=== PATIENT | female | born 1965 | race Caucasian/White ===

== ENCOUNTER → 2018-07-03 | Outpatient (CLI) | payer BC ==
[2018-07-03 12:28] LABS: ADD MAN DIFF? NO
[2018-07-03 12:30] LABS: WHITE BLOOD COUNT 7.5 10^3/ul (4.8-10.8)
[2018-07-03 12:30] LABS: BASOPHILS % 0.4 % (0.0-2.0); EOSINOPHILS % 0.5 % (0.0-7.0); HEMATOCRIT 39.9 % (37.0-47.0); HEMOGLOBIN 13.5 g/dl (12.0-16.0); IMMATURE GRANS #M 0.02 10^3/ul; IMMATURE GRANS % (M) 0.3 %; LYMPHOCYTES # 2.1 10^3/ul (0.8-2.9); LYMPHOCYTES % 28.2 % (15.0-51.0); MEAN CORPUSCULAR HEMOGLOBIN 31.2 pg (29.0-33.0); MEAN CORPUSCULAR HGB CONC 33.8 g/dl (32.0-37.0); MEAN CORPUSCULAR VOLUME 92.1 fl (82.0-101.0); MEAN PLATELET VOLUME 8.7 fl (7.4-10.4); MONOCYTE # 0.6 10^3/ul (0.3-0.9); MONOCYTES % 8.2 % (0.0-11.0); NEUTROPHIL # 4.7 10^3/ul (1.6-7.5); NEUTROPHILS % 62.4 % (39.0-77.0); PLATELET COUNT 250 10^3/UL (140-415); RED BLOOD COUNT 4.33 10^6/ul (4.20-5.40); RED CELL DISTRIBUTION WIDTH 12.4 % (11.5-14.5)
[2018-07-03 12:40] LABS: ADD UMIC YES; UR ASCORBIC ACID 40 mg/dL (NEGATIVE); UR BILIRUBIN (Dip) NEGATIVE (NEGATIVE); UR BLOOD (Dip) NEGATIVE (NEGATIVE); UR CLARITY SLIGHTLY CLOUDY (CLEAR); UR COLOR YELLOW (YELLOW); UR GLUCOSE (Dip) NEGATIVE (NEGATIVE); UR KETONES (Dip) NEGATIVE (NEGATIVE); UR LEUKOCYTE ESTERASE (Dip) TRACE Leu/ul (NEGATIVE); UR MUCUS FEW /HPF (NONE SEEN); UR NITRITE (Dip) NEGATIVE (NEGATIVE); UR RBC 9 /HPF (0-5); UR SPECIFIC GRAVITY (Dip) 1.019 (1.003-1.030); UR SQUAMOUS EPITHELIAL CELL FEW /HPF (FEW); UR TOTAL PROTEIN (Dip) NEGATIVE (NEGATIVE); UR UROBILINOGEN (Dip) NEGATIVE (NEGATIVE); UR WBC 1 /HPF (0-5)
[2018-07-03 12:40] LABS: HEMOGLOBIN A1C 5.8 % (0-5.9)
[2018-07-03 13:09] LABS: ALANINE AMINOTRANSFERASE 40 IU/L (13-69); ALBUMIN 4.1 g/dl (3.3-4.9); ALBUMIN/GLOBULIN RATIO 1.07; ALKALINE PHOSPHATASE 61 IU/L (42-121); ANION GAP 11 (8-16); ASPARTATE AMINO TRANSFERASE 34 IU/L (15-46); BILIRUBIN,INDIRECT 0.8 mg/dl (0-1.1); BILIRUBIN,TOTAL 0.8 mg/dl (0.2-1.3); BLOOD UREA NITROGEN 16 mg/dl (7-20); CALCIUM 9.4 mg/dl (8.4-10.2); CARBON DIOXIDE 31 mmol/L (21-31); CHLORIDE 105 mmol/L (97-110); CHOL/HDL RATIO 3.5 RATIO; CHOLESTEROL 162 mg/dl (100-200); CREATININE 0.68 mg/dl (0.44-1.00); GLUCOSE 93 mg/dl (70-220); HDL CHOLESTEROL 46 mg/dl (37-92); LDL CHOLESTEROL,CALCULATED 93 mg/dl; POTASSIUM 4.8 mmol/L (3.5-5.1); SODIUM 142 mmol/L (135-144); TOTAL PROTEIN 7.9 g/dl (6.1-8.1); TRIGLYCERIDES 113 mg/dl (0-149)
[2018-07-03 13:38] LABS: ERYTHROCYTE SEDIMENTATION RATE 15 mm/Hr (0-30)
[2018-07-03 14:16] LABS: FOLATE > 20.0 ng/ml (2.8-20.0)
== END | disposition home or self-care (01) ==
LOC: LAB 11:59
DX: G62.9 Polyneuropathy, unspecified (principal); R73.03 Prediabetes; E53.8 Deficiency of other specified B group vitamins; E78.5 Hyperlipidemia, unspecified; R31.9 Hematuria, unspecified
CPT/HCPCS: 80053; 80061; 81001; 82607; 82746; 83036; 85025; 85651

== ENCOUNTER → 2018-07-13 | Outpatient (CLI) | payer BC | END | disposition home or self-care (01) | LOC: LAB 11:47 | DX: N39.0 Urinary tract infection, site not specified (principal) | CPT/HCPCS: 87086 ==

== ENCOUNTER → 2018-08-11 | Outpatient (CLI) | payer BC ==
[2018-08-11 11:13] LABS: ADD MAN DIFF? NO
[2018-08-11 11:35] LABS: BASOPHILS % 0.4 % (0.0-2.0); EOSINOPHILS % 0.6 % (0.0-7.0); HEMATOCRIT 39.3 % (37.0-47.0); HEMOGLOBIN 12.9 g/dl (12.0-16.0); LYMPHOCYTES # 1.9 10^3/ul (0.8-2.9); LYMPHOCYTES % 39.8 % (15.0-51.0); MEAN CORPUSCULAR HEMOGLOBIN 30.4 pg (29.0-33.0); MEAN CORPUSCULAR HGB CONC 32.8 g/dl (32.0-37.0); MEAN CORPUSCULAR VOLUME 92.7 fl (82.0-101.0); MEAN PLATELET VOLUME 8.7 fl (7.4-10.4); MONOCYTE # 0.3 10^3/ul (0.3-0.9); NEUTROPHIL # 2.5 10^3/ul (1.6-7.5); PLATELET COUNT 235 10^3/UL (140-415); RED BLOOD COUNT 4.24 10^6/ul (4.20-5.40); RED CELL DISTRIBUTION WIDTH 12.4 % (11.5-14.5)
[2018-08-11 11:35] LABS: WHITE BLOOD COUNT 4.9 10^3/ul (4.8-10.8)
[2018-08-11 11:53] LABS: ALANINE AMINOTRANSFERASE 32 IU/L (13-69); ALBUMIN 4.2 g/dl (3.3-4.9); ALBUMIN/GLOBULIN RATIO 1.13; ALKALINE PHOSPHATASE 57 IU/L (42-121); ANION GAP 12 (8-16); ASPARTATE AMINO TRANSFERASE 29 IU/L (15-46); BLOOD UREA NITROGEN 16 mg/dl (7-20); CALCIUM 9.4 mg/dl (8.4-10.2); CARBON DIOXIDE 30 mmol/L (21-31); CHLORIDE 104 mmol/L (97-110); CHOL/HDL RATIO 3.7 RATIO; CHOLESTEROL 160 mg/dl (100-200); CREATININE 0.66 mg/dl (0.44-1.00); GLUCOSE 95 mg/dl (70-220); HDL CHOLESTEROL 43 mg/dl (37-92); LDL CHOLESTEROL,CALCULATED 103 mg/dl; POTASSIUM 4.6 mmol/L (3.5-5.1); SODIUM 141 mmol/L (135-144); TOTAL PROTEIN 7.9 g/dl (6.1-8.1); TRIGLYCERIDES 70 mg/dl (0-149)
== END | disposition home or self-care (01) ==
LOC: LAB 10:59
DX: R73.03 Prediabetes (principal); E78.5 Hyperlipidemia, unspecified
CPT/HCPCS: 80053; 80061; 85025

== ENCOUNTER → 2018-09-11 | Outpatient (CLI) | payer BC ==
[2018-09-11 11:05] LABS: ADD UMIC YES; UR ASCORBIC ACID NEGATIVE (NEGATIVE); UR BILIRUBIN (Dip) NEGATIVE (NEGATIVE); UR BLOOD (Dip) 1+ mg/dL (NEGATIVE); UR CLARITY CLEAR (CLEAR); UR COLOR STRAW (YELLOW); UR GLUCOSE (Dip) NEGATIVE (NEGATIVE); UR KETONES (Dip) NEGATIVE (NEGATIVE); UR LEUKOCYTE ESTERASE (Dip) NEGATIVE Leu/ul (NEGATIVE); UR NITRITE (Dip) NEGATIVE (NEGATIVE); UR RBC 1 /HPF (0-5); UR SPECIFIC GRAVITY (Dip) 1.008 (1.003-1.030); UR TOTAL PROTEIN (Dip) NEGATIVE (NEGATIVE); UR UROBILINOGEN (Dip) NEGATIVE (NEGATIVE); UR WBC 0 /HPF (0-5)
== END | disposition home or self-care (01) ==
LOC: LAB 10:28
DX: N39.0 Urinary tract infection, site not specified (principal); R31.9 Hematuria, unspecified
CPT/HCPCS: 81001; 87086

== ENCOUNTER → 2018-09-19 | Outpatient (CLI) | payer BC ==
[2018-09-19] MEDS: SOD CHLORIDE 0.9% 100 ML (17:01)
[2018-09-19] MEDS: IOHEXOL 300MG/ML 150 ML BTL (17:01)
== END | disposition home or self-care (01) ==
LOC: C/S 16:18
DX: R10.9 Unspecified abdominal pain (principal); R31.9 Hematuria, unspecified
CPT/HCPCS: 74177

== ENCOUNTER → 2018-12-11 | Outpatient (CLI) | payer BC | END | disposition home or self-care (01) | LOC: RAD 14:50 | DX: R52 Pain, unspecified (principal); R60.9 Edema, unspecified | CPT/HCPCS: 73630; 73630-LT ==

== ENCOUNTER 2019-04-01 17:50 | Emergency (ER) | payer BC ==
[2019-04-01] MEDS: ACETAMINOPHEN 325 MG TAB PO (18:53)
== END 2019-04-01 19:39 | disposition home or self-care (01) ==
LOC: FTE 17:50
DX: M54.41 Lumbago with sciatica, right side (principal); M79.604 Pain in right leg
CPT/HCPCS: 73562; 93971; 99284-25

== ENCOUNTER → 2019-04-10 | Outpatient (CLI) | payer BC ==
[2019-04-10 10:51] LABS: ADD MAN DIFF? NO
[2019-04-10 10:52] LABS: BASOPHILS % 0.5 % (0.0-2.0); EOSINOPHILS % 0.7 % (0.0-7.0); LYMPHOCYTES # 2.1 10^3/ul (0.8-2.9); LYMPHOCYTES % 36.8 % (15.0-51.0); MEAN CORPUSCULAR HEMOGLOBIN 30.5 pg (29.0-33.0); MEAN CORPUSCULAR HGB CONC 32.5 g/dl (32.0-37.0); MEAN CORPUSCULAR VOLUME 93.9 fl (82.0-101.0); MEAN PLATELET VOLUME 8.8 fl (7.4-10.4); MONOCYTE # 0.4 10^3/ul (0.3-0.9); MONOCYTES % 7.2 % (0.0-11.0); NEUTROPHIL # 3.2 10^3/ul (1.6-7.5); NEUTROPHILS % 54.3 % (39.0-77.0); PLATELET COUNT 248 10^3/UL (140-415); RED BLOOD COUNT 4.26 10^6/ul (4.20-5.40); RED CELL DISTRIBUTION WIDTH 12.9 % (11.5-14.5)
[2019-04-10 10:52] LABS: WHITE BLOOD COUNT 5.8 10^3/ul (4.8-10.8)
[2019-04-10 11:23] LABS: ALANINE AMINOTRANSFERASE 26 IU/L (13-69); ALBUMIN 4.4 g/dl (3.3-4.9); ALBUMIN/GLOBULIN RATIO 1.33; ALKALINE PHOSPHATASE 58 IU/L (42-121); ANION GAP 6 (5-13); ASPARTATE AMINO TRANSFERASE 27 IU/L (15-46); BILIRUBIN,INDIRECT 0.9 mg/dl (0-1.1); BILIRUBIN,TOTAL 0.9 mg/dl (0.2-1.3); BLOOD UREA NITROGEN 21 mg/dl (7-20); CALCIUM 9.9 mg/dl (8.4-10.2); CARBON DIOXIDE 30 mmol/L (21-31); CHLORIDE 105 mmol/L (97-110); CHOL/HDL RATIO 3.6 RATIO; CHOLESTEROL 186 mg/dl (100-200); CREATININE 0.65 mg/dl (0.44-1.00); Estimated GFR > 60 mL/min (>60); GLUCOSE 103 mg/dl (70-220); HDL CHOLESTEROL 51 mg/dl (37-92); LDL CHOLESTEROL,CALCULATED 114 mg/dl; POTASSIUM 4.8 mmol/L (3.5-5.1); SODIUM 141 mmol/L (135-144); TOTAL PROTEIN 7.7 g/dl (6.1-8.1); TRIGLYCERIDES 105 mg/dl (0-149)
[2019-04-10 11:43] LABS: HEMOGLOBIN A1C 5.4 % (0-5.9)
[2019-04-10 12:00] LABS: ERYTHROCYTE SEDIMENTATION RATE 14 mm/Hr (0-30)
== END | disposition home or self-care (01) ==
LOC: LAB 10:13
DX: E78.5 Hyperlipidemia, unspecified (principal); R73.03 Prediabetes
CPT/HCPCS: 80053; 80061; 83036; 85025; 85651

== ENCOUNTER 2019-04-22 05:50 | Emergency (ER) | payer BC | END 2019-04-22 06:50 | disposition home or self-care (01) | LOC: FTE 06:50 | DX: M17.11 Unilateral primary osteoarthritis, right knee (principal) | CPT/HCPCS: 29505; 99282-25 ==